=== PATIENT | female | born 1970 | race Caucasian/White ===

== ENCOUNTER 2023-03-26 05:27 | Inpatient (IN) | payer OTHER ==
[2023-03-22 16:34] VITALS: BMI 30.2
[2023-03-26] MEDS ORDERED: ceFAZolin SODIUM 1 GM VIAL ONE ×2 (06:28→08:47)
[2023-03-26 06:47] LABS: INR 1.31 (0.83-1.09); PROTHROMBIN TIME (PATIENT) 15.1 SEC (9.7-13.0)
[2023-03-26 06:49] LABS: ACTIVATED PTT 40.2 SECONDS (25.2-36.5)
[2023-03-26] MEDS ORDERED: ceFAZolin 2 GRAM PREMIX BAG IVPB ONE (07:00)
[2023-03-26 07:01] LABS: POTASSIUM 3.7 mmol/L (3.5-5.1)
[2023-03-26 07:03] LABS: CALCIUM 9.4 mg/dL (8.5-10.1)
[2023-03-26 07:04] LABS: ALBUMIN 4.2 g/dl (3.4-5.0); BLOOD UREA NITROGEN 11.7 mg/dL (7-18)
[2023-03-26 07:07] LABS: CREATININE 0.6 mg/dL (0.55-1.3)
[2023-03-26 07:08] LABS: BILIRUBIN,TOTAL 0.2 mg/dL (0.2-1); TOT PROT 7.5 g/dl (6.4-8.2)
[2023-03-26] MEDS ORDERED: THROMBIN (BOVINE) 5,000 UNIT VIAL TP ONE ×2 (07:14→09:30)
[2023-03-26] MEDS ORDERED: GENTAMICIN SO4 80 MG/2 ML VIAL ONE (07:14)
[2023-03-26] MEDS ORDERED: VANCOMYCIN 1 GM in D5W (PRE-DOCKED) 1,000 MG/250 ML (RESTRICTED TO ID ONLY IVPB ONE ×2 (07:28→08:45)
[2023-03-26] MEDS ORDERED: LIDOCAINE 1%/EPI 1:100000 (20 ML MULTI DOSE VIAL) IJ ONE ×2 (07:28→08:46)
[2023-03-26] MEDS ORDERED: ceFAZolin SODIUM 1 GM VIAL IVPB ONE ×2 (07:28→08:45)
[2023-03-26] MEDS ORDERED: MIDAZOLAM HCL 2 MG/2 ML SINGLE DOSE VIAL ONE (07:52)
[2023-03-26] MEDS ORDERED: PROPOFOL 20 ML ONE (07:52)
[2023-03-26] MEDS ORDERED: ROCURONIUM BROMIDE 50 MG/5 ML SYRINGE ONE (07:52)
[2023-03-26] MEDS ORDERED: AMPICILLIN SODIUM 2 GM VIAL ONE (08:46)
[2023-03-26] MEDS ORDERED: ONDANSETRON 4 MG/2 ML VIAL ONE (08:47)
[2023-03-26] MEDS ORDERED: KETOROLAC TROMETHAMINE 30 MG/1 ML VIAL ONE (08:47)
[2023-03-26] MEDS ORDERED: DEXAMETHASONE SOD PHOSPHATE 4 MG/1 ML VIAL ONE (08:47)
[2023-03-26] MEDS ORDERED: HYDROmorphone HCl 2 MG/ML VIAL ONE (08:54)
[2023-03-26] MEDS ORDERED: LABETALOL HCL 20 MG/4 ML VIAL ONE (08:58)
[2023-03-26] MEDS ORDERED: GLYCOPYRROLATE 0.2 MG/1 ML VIAL ONE (09:32)
[2023-03-26] MEDS ORDERED: NEOSTIGMINE METHYLSULFATE 0.5 MG/1 ML - 10 ML MDV ONE (09:32)
[2023-03-26] MEDS ORDERED: GENTAMICIN SO4 80 MG/2 ML VIAL IVPB ONE (09:35)
[2023-03-26] MEDS ORDERED: HYDROGEN PEROXIDE 473 ML PO ONE (09:35)
[2023-03-26] MEDS ORDERED: ONDANSETRON 4 MG/2 ML VIAL IVPUSH PRN ×2 (10:11→10:17)
[2023-03-26] MEDS ORDERED: LACTATED RINGERS SOLUTION 1,000 ML IV SCH (10:15)
[2023-03-26] MEDS ORDERED: oxyCODONE HCL 5 MG TABLET PO PRN (10:17)
[2023-03-26] MEDS ORDERED: diphenhydrAMINE HCL 25 MG CAPSULE (FP) PO PRN (10:17)
[2023-03-26] MEDS: LACTATED RINGERS SOLUTION 1,000 ML/1,000 ML INFUS.BAG IV SCH ×2 (10:30→20:20)
[2023-03-26] MEDS ORDERED: INSULIN (NOVOLOG) ASPART 100 UNITS/ML 10ML VIAL ONE ×2 (10:47→17:14)
[2023-03-26] MEDS: INSULIN SLIDING SCALE (NOVOLOG) 1 VIAL SQ SCH ×3 (13:09→22:08)
[2023-03-26] MEDS: oxyCODONE HCL 5 MG TABLET PO PRN ×2 (15:31→20:12)
[2023-03-26] MEDS: DOCUSATE SODIUM 100 MG CAPSULE (FP) PO SCH ×2 (15:34→22:01)
[2023-03-26 15:55] VITALS: RESP 20
[2023-03-26] MEDS: CEFAZOLIN 1 GM in DEXTROSE 5%-WATER - 50 ML IVPB SCH (17:35)
[2023-03-26] MEDS ORDERED: ACETAMINOPHEN 1000 MG/100 ML BAG IVPB PRN (19:00)
[2023-03-26] MEDS ORDERED: AMITRIPTYLINE HCL 25 MG TABLET PO SCH (22:00)
[2023-03-26] MEDS: CYCLOBENZAPRINE HCL 10 MG TABLET (FP) PO SCH (22:01)
[2023-03-26] MEDS: PREGABALIN 75 MG CAPSULE PO SCH (22:01)
[2023-03-27] MEDS: CEFAZOLIN 1 GM in DEXTROSE 5%-WATER - 50 ML IVPB SCH ×2 (00:40→09:29)
[2023-03-27] MEDS ORDERED: INSULIN (NOVOLOG) ASPART 100 UNITS/ML 10ML VIAL ONE ×2 (05:38→12:50)
[2023-03-27] MEDS: DOCUSATE SODIUM 100 MG CAPSULE (FP) PO SCH ×2 (06:29→12:59)
[2023-03-27] MEDS: INSULIN SLIDING SCALE (NOVOLOG) 1 VIAL SQ SCH ×2 (06:39→12:57)
[2023-03-27] MEDS: oxyCODONE HCL 5 MG TABLET PO PRN (06:41)
[2023-03-27] MEDS ORDERED: HEPARIN NA (PORCINE) 5,000 UNITS/ML 1ML VIAL SQ SCH (07:00)
[2023-03-27 08:19] LABS: HEMATOCRIT 35.4 % (32.4-45.2); HEMOGLOBIN 12.5 GM/dL (10.7-15.3); MCH 31.6 pg (25.7-33.7); MCHC 35.4 g/dl (32.0-36.0); MEAN CELL VOLUME 89.2 fl (80-96); MEAN PLT VOLUME 7.7 fl (7.5-11.1); PLATELET COUNT 167 10^3/uL (134-434); RBC 3.97 M/mm3 (3.60-5.2); RDW 13.2 % (11.6-15.6); WHITE BLOOD COUNT 9.7 K/mm3 (4.0-10.0)
[2023-03-27 08:38] LABS: POTASSIUM 3.7 mmol/L (3.5-5.1)
[2023-03-27 08:44] LABS: CALCIUM 8.9 mg/dL (8.5-10.1)
[2023-03-27 08:45] LABS: BLOOD UREA NITROGEN 13.8 mg/dL (7-18)
[2023-03-27 08:48] LABS: CREATININE 0.4 mg/dL (0.55-1.3)
[2023-03-27] MEDS: PREGABALIN 75 MG CAPSULE PO SCH (09:28)
[2023-03-27] MEDS: CYCLOBENZAPRINE HCL 10 MG TABLET (FP) PO SCH (09:28)
[2023-03-27] MEDS ORDERED: DULoxetine HCL 30 MG CAPSULE.DR PO SCH (10:00)
[2023-03-27] MEDS ORDERED: DULoxetine HCL 60 MG CAPSULE.DR PO SCH (10:00)
[2023-03-27] MEDS ORDERED: FOLIC ACID 1 MG TABLET (FP) PO SCH (10:00)
[2023-03-27] MEDS ORDERED: PATIENT'S OWN MEDICATION (NON-FORMULARY) (Linaclotide [Linzess] 145 MCG Capsule) PO SCH (10:00)
[2023-03-27] MEDS ORDERED: FERROUS SO4 325 MG TABLET (FP) PO SCH (10:00)
[2023-03-27] MEDS ORDERED: LOSARTAN POTASSIUM 50 MG TABLET PO SCH (10:00)
[2023-03-27] MEDS: LACTATED RINGERS SOLUTION 1,000 ML/1,000 ML INFUS.BAG IV SCH (10:37)
[2023-03-27 13:58] VITALS: BP 125/71; PULSE 110; TEMP 98.5
[2023-03-27] MEDS ORDERED: ROSUVASTATIN CA 10 MG TABLET PO SCH (22:00)
== END 2023-03-27 14:57 | disposition home or self-care (01) | DRG 321 ==
LOC: J2C 05:27 → J8W 12:59
PROVIDERS: ADMIT Internal Medicine; ATTEND Nurse Practitioner Family
PROC: 00NW0ZZ Release Cervical Spinal Cord, Open Approach (ICD-10-PCS; 2023-03-26)
PROC: 0RT30ZZ Resection of Cervical Vertebral Disc, Open Approach (ICD-10-PCS; 2023-03-26)
PROC: 4A1104G Monitoring of Peripheral Nervous Electrical Activity, Intraoperative, Open Approach (ICD-10-PCS; 2023-03-26)
PROC: 0RG10A0 Fusion of Cervical Vertebral Joint with Interbody Fusion Device, Anterior Approach, Anterior Column, Open Approach (ICD-10-PCS; principal; 2023-03-26 08:00)
DX: M47.12 Other spondylosis with myelopathy, cervical region (principal); M48.02 Spinal stenosis, cervical region; M54.2 Cervicalgia; I10 Essential (primary) hypertension; E78.5 Hyperlipidemia, unspecified; E11.9 Type 2 diabetes mellitus without complications
CPT/HCPCS: 36415; 72125-TC; 76000-TC-FY; 80048; 80053; 82962; 83036; 85027; 85610; 85730; 86850; 86900; 86901; 94760; 97116-GP; 97161-GP; C1713; J1644